=== PATIENT | female | born 1960 | race Caucasian/White ===

== ENCOUNTER → 2016-07-21 | Day surgery (SDC) | payer OTHER ==
[2016-07-19 13:33] VITALS: Ht 168.9 cm; Wt 69.1 kg
[~2016-07-21] VITALS: Ht 168.9 cm; Wt 69.1 kg
[~2016-07-21] MED LIST: AMOX500C3 PO; ATROPINE SULFATE 0.1 MG/ML 5ML SYR IV PRN; CIPROFLOXACIN / D5W 400 MG IV SCH; COEN75CA PO; CRS/10 PO; DEXAMETHASONE SOD INJ 4 MG/ML VIAL ONE; EpHEDrine SULFATE INJ 50 MG/ML AMP IV PRN; FENTANYL CITRATE INJ 50 MCG/1 ML 2 ML VIAL IV PRN; FENTANYL CITRATE INJ 50 MCG/1 ML 2 ML VIAL ONE; LACTATED RINGER'S 1000ML 1,000 ML IV SCH; LEVO100T7 PO; LIDOCAINE HCL 2% 2 ML VIAL (20MG/ML) ONE; METOCLOPRAMIDE HCL INJ 5 MG/ML 2 ML VIAL ONE; MIDAZOLAM HCL 1 MG/ML 2ML VIAL ONE; MULT-506 PO; NURSING VERBAL MED ORDER ONE; ONDANSETRON INJ 2 MG/ML 2 ML VIAL IV PRN; ONDANSETRON INJ 2 MG/ML 2 ML VIAL ONE; PANT40TA PO; PROPOFOL IV EMULSION 10 MG/ML 20 ML VIAL IV ONE; SCOPOLAMINE 1.5 MG TDSY TD ONE
--- NOTE | 2016-07-21 09:12 | DIAGNOSTIC IMAGING REPORT ---
KUB CLINICAL HISTORY: Nephrolithiasis. FINDINGS: 2 AP abdominal radiographs are compared to study dated 07/13/2016 and correlated with abdominal CT dated 12/30/2015. There is a nonobstructed abdominal bowel gas pattern. There are 2 calcifications projecting below the left left transverse process of L3. These are likely within the mesentery when correlated with these prior CT scan. A 9 mm calculus projecting over the lower pole of the left kidney is unchanged. No calcifications are seen projecting over the right kidney. Pelvic phleboliths are again noted. The bony structures appear intact. IMPRESSION: 1. A 9 mm left renal calculus is unchanged. 2. Calcifications projecting below the left transverse process of L3 are likely located within the mesentery when correlated with the prior abdominal CT scan. Electronically signed by: Marcin Hamilton M.D. 07/21/2016 9:10 AM Dictated Date/Time: 07/21/2016 9:08 AM
--- NOTE | 2016-07-21 11:12 | History & Physical Bridge - SC ---
H&P Re-Evaluation Bridge Note: I have examined the patient, reviewed the History & Physical and in the interval since the performance of the History & Physical I have noted the following changes of clinical significance: No changes noted
--- NOTE | 2016-07-21 12:32 | [facility] Post Operative Brief Note ---
Immediate Operative Summary Operative Date Jul 21, 2016. Pre-Operative Diagnosis left renal stone Post-Operative Diagnosis same Procedure(s) Performed Left Extracorporeal Shock Wave Lithotripsy Surgeon dr betancourt Human Performance Consultant Surgeon(s) none Estimated Blood Loss 0 Findings stone appeared to fragment Specimens 0
--- NOTE | 2016-07-21 12:34 | Discharge Instructions-SurgCtr ---
Discharge Instructions Visit Reason for Visit: Left Stones Discharge Discharge Diagnosis / Problem: same Discharge Goals Goal(s): Improve function, Improve disease control Medications Stopped Medications Name(s): HELD HER BABY ASPIRIN FOR EIGHT DAYS Activity Recommendations Activity Limitations: as noted below (no driving on narcotics) Anesthesia . Post Anesthesia Instructions: If you have had General Anesthesia or IV Sedation: * Do not drive today. * Resume driving when surgeon permits. * Do not make important decisions or sign legal documents today. * Call surgeon for: 1. Temperature elevations greater than 101 degrees F. 2. Uncontrollable pain. 3. Excessive bleeding. 4. Persistent nausea and vomiting. 5. Medication intolerance (nausea, vomiting or rash). * For nausea and vomiting use only clear liquids such as: tea, soda, bouillon until nausea subsides, then gradually increase diet as tolerated. * If you have any concerns or questions, call your surgeon's office. If physician is unavailable and it is an emergency, call 911 or go to the nearest emergency room. . Diet Recommendations Home Diet: resume previous diet Procedures Procedures Performed: Left Extracorporeal Shock Wave Lithotripsy Medical Emergencies . Who to Call and When: Medical Emergencies: If at any time you feel your situation is an emergency, please call 911 immediately. . Non-Emergent Contact . . "Provider Documentation" section prepared by Enrique Jean.
--- NOTE | 2016-07-21 12:59 | Anesthesia Progress Nt - [facility] ---
Anesthesia Post Op Note Date & Time Jul 21, 2016 at 12:59 Vital Signs Vital Signs Past 12 Hours Date Time Temp Pulse Resp B/P Pulse Ox O2 Delivery O2 Flow Rate FiO2 07/21/16 12:42 36.7 81 16 151/96 100 Diffusion Mask 6 07/21/16 09:51 37.0 74 18 135/97 96 Room Air Notes Mental Status: alert / awake / arousable, participated in evaluation Pt Amnestic to Procedure: Yes Nausea / Vomiting: adequately controlled Pain: adequately controlled Airway Patency, RR, SpO2: stable & adequate BP & HR: stable & adequate Hydration State: stable & adequate Anesthetic Complications: no major complications apparent
[2016-07-21 13:46] VITALS: TEMP 36.5
[2016-07-21 14:07] VITALS: BP 116/75; PULSE 81; O2SAT 98
--- NOTE | 2016-07-21 14:54 | OPERATIVE REPORT ---
DATE OF OPERATION: 07/21/2016 PREOPERATIVE DIAGNOSIS: Left renal stone. POSTOPERATIVE DIAGNOSIS: Same. SURGEON: Dr. Jean. ANESTHESIA: General. INDICATIONS: The patient is a 56-year-old female with a left lower pole ureteral stone for lithotripsy. DESCRIPTION OF THE PROCEDURE: The patient was taken to the operating room after she had Venodyne stockings placed and antibiotics were given. She was given general anesthesia in the supine position. The stone was visualized in 2 views and she received 2500 shocks, the majority at level 4 as the stone appeared to fragment during the course of the lithotripsy. The patient has tolerated the procedure well and was transferred to the recovery room in stable condition. I attest to the content of the Intraoperative Record and any orders documented therein. Any exceptio ns are noted below.
== END | disposition home or self-care (01) ==
LOC: X.SURG 09:16
PROVIDERS: ATTEND Urology
DX: N20.0 Calculus of kidney (principal); N39.0 Urinary tract infection, site not specified; N63 Unspecified lump in breast; I73.9 Peripheral vascular disease, unspecified; K21.9 Gastro-esophageal reflux disease without esophagitis; E78.5 Hyperlipidemia, unspecified; E03.9 Hypothyroidism, unspecified; Z98.890 Other specified postprocedural states; Z90.49 Acquired absence of other specified parts of digestive tract; Z98.51 Tubal ligation status

== ENCOUNTER → 2017-02-06 | Outpatient (CLI) | payer OTHER ==
[~2017-02-06] MED LIST changes: -ATROPINE SULFATE 0.1 MG/ML 5ML SYR IV PRN; -CIPROFLOXACIN / D5W 400 MG IV SCH; -DEXAMETHASONE SOD INJ 4 MG/ML VIAL ONE; -EpHEDrine SULFATE INJ 50 MG/ML AMP IV PRN; -FENTANYL CITRATE INJ 50 MCG/1 ML 2 ML VIAL IV PRN; -FENTANYL CITRATE INJ 50 MCG/1 ML 2 ML VIAL ONE; -LACTATED RINGER'S 1000ML 1,000 ML IV SCH; -LIDOCAINE HCL 2% 2 ML VIAL (20MG/ML) ONE; -METOCLOPRAMIDE HCL INJ 5 MG/ML 2 ML VIAL ONE; -MIDAZOLAM HCL 1 MG/ML 2ML VIAL ONE; -NURSING VERBAL MED ORDER ONE; -ONDANSETRON INJ 2 MG/ML 2 ML VIAL IV PRN; -ONDANSETRON INJ 2 MG/ML 2 ML VIAL ONE; -PROPOFOL IV EMULSION 10 MG/ML 20 ML VIAL IV ONE; -SCOPOLAMINE 1.5 MG TDSY TD ONE
--- NOTE | 2017-02-06 14:01 | DIAGNOSTIC IMAGING REPORT ---
KUB CLINICAL HISTORY: NEPHROLITHIASIS nephrocalcinosis COMPARISON STUDY: 07/31/2016 FINDINGS: Unchanging left-sided nephrocalcinosis. 3 mm calcification medially lateral to the L3-L4 disc base similar compared to the prior study. Several pelvic calcifications unchanged. IMPRESSION: Left renal calcification unchanged in the prior study. Unchanging calcification medially left lateral L3-L4 The above report was generated using voice recognition software. It may contain grammatical, syntax or spelling errors. Electronically signed by: Zain Justice M.D. 02/06/2017 1:59 PM Dictated Date/Time: 02/06/2017 1:54 PM
== END | disposition home or self-care (01) ==
LOC: C.RAD 13:30
PROVIDERS: ATTEND Nurse Practitioner Family
DX: N20.0 Calculus of kidney (principal)

== ENCOUNTER → 2018-02-07 | Day surgery (SDC) | payer OTHER ==
[2018-01-01 16:50] VITALS: BMI 23.0
[2018-01-21 15:01] VITALS: Ht 167.6 cm; Wt 68.2 kg
--- NOTE | 2018-02-05 08:34 | History and Physical: Surg Cnt ---
History & Physical Date Feb 05, 2018. Chief Complaint chronic tonsillitis History of Present Illness The patient is a 57 year old female with complaints of chronic tonsillitis/ tonsilloliths Additional History Hepatic Disease: No Endocrine Disorder: No Kidney Disease: No Hypertension: No Heart Disease: No Bleeding Tendencies: No Infectious Diseases: No Allergies Coded Allergies: Codeine (Verified Adverse Reaction, Mild, nausea and vomiting, 01/21/18) Home Medications Scheduled Aspirin (Aspirin Ec), 81 MG PO QPM Cholecalciferol (Vitamin D), 1,000 UNITS PO Q2D Coenzyme Q10 (Ubidecarenone) (Co Q-10), 100 CAP PO BID Levothyroxine Sodium (Levothyroxine Sodium), 1 TAB PO QAM Multivitamin (Multivitamin), 1 TAB PO QAM Ranitidine (Zantac), 150 MG PO BID Rosuvastatin Calcium (Crestor), 10 MG PO HS Scheduled PRN Amoxicillin (Amoxil), 1 MG PO TID PRN for DENTAL PROCEDURES Physical Examination Skin: warm/dry, no rash Eyes: normal inspection, EOMI, sclerae normal ENT: normal ENT inspection, pharynx normal Head: normocephalic, atraumatic Neck: supple, no adenopathy, trachea midline Respiratory/Chest: lungs clear, normal breath sounds, no respiratory distress Cardiovascular: regular rate, rhythm, no edema, no murmur Abdomen / GI: normal bowel sounds, non tender Back: normal inspection Extremities: normal inspection, normal range of motion Neurologic/Psych: no motor/sensory deficits, alert, normal reflexes, oriented x 3 Diagnosis chronic tonsillitis/tonsilloliths Plan of Treatment adenotonsillectomy
[~2018-02-07] VITALS: Ht 167.6 cm; Wt 68.2 kg
[~2018-02-07] MED LIST changes: +ACETAMINOPHEN/HYDROCODONE ELIX 15 ML/CUP UDP PO PRN; +ASPI81TA28 PO; +ATROPINE SULFATE 0.1 MG/ML 5ML SYR IV PRN; +BUPIVACAINE/EPINEPHRINE 0.5% MPF 1:200,000 30 ML VIAL ONE; +CEFAZOLIN 1000MG IV PUSH 7.5 ML IV SCH; +CHOL100010 PO; +DEXAMETHASONE SOD INJ 4 MG/ML VIAL ONE; +EpHEDrine SULFATE INJ 50 MG/ML AMP IV PRN; +FENTANYL CITRATE INJ 50 MCG/1 ML 2 ML VIAL IV PRN; +FENTANYL CITRATE INJ 50 MCG/1 ML 2 ML VIAL ONE; +HYDR1SOL10 PO; +LACTATED RINGER'S 1000ML 1,000 ML IV SCH; +LIDOCAINE HCL 2% 2 ML VIAL (20MG/ML) ONE; +MIDAZOLAM HCL 1 MG/ML 2ML VIAL ONE; +ONDA8TAB62 SL; +ONDANSETRON INJ 2 MG/ML 2 ML VIAL IV PRN; +ONDANSETRON INJ 2 MG/ML 2 ML VIAL ONE; -PANT40TA PO; +PROPOFOL IV EMULSION 10 MG/ML 20 ML VIAL ONE; +RANI150T85 PO; +SODIUM CHLORIDE 0.9% 1000ML 1,000 ML IV SCH; +SUCCINYLCHOLINE CHLORIDE 20 MG/ML 10 ML VIAL IV ONE
--- NOTE | 2018-02-07 06:53 | History and Physical: Surg Cnt ---
History & Physical Date Feb 07, 2018. Chief Complaint tonsil stones History of Present Illness The patient is a 57 year old female with complaints of recurrent tonsilloliths Additional History Hepatic Disease: No Endocrine Disorder: No Kidney Disease: No Hypertension: No Heart Disease: No Bleeding Tendencies: No Infectious Diseases: No Allergies Coded Allergies: Codeine (Verified Adverse Reaction, Mild, nausea and vomiting, 01/21/18) Home Medications Scheduled Aspirin (Aspirin Ec), 81 MG PO QPM Cholecalciferol (Vitamin D), 1,000 UNITS PO Q2D Coenzyme Q10 (Ubidecarenone) (Co Q-10), 100 CAP PO BID Levothyroxine Sodium (Levothyroxine Sodium), 1 TAB PO QAM Multivitamin (Multivitamin), 1 TAB PO QAM Ranitidine (Zantac), 150 MG PO BID Rosuvastatin Calcium (Crestor), 10 MG PO HS Scheduled PRN Amoxicillin (Amoxil), 1 MG PO TID PRN for DENTAL PROCEDURES Physical Examination Skin: warm/dry, no rash Eyes: normal inspection, EOMI, sclerae normal ENT: normal ENT inspection, pharynx normal Head: normocephalic, atraumatic Neck: supple, no adenopathy, trachea midline Respiratory/Chest: lungs clear, normal breath sounds, no respiratory distress Cardiovascular: regular rate, rhythm, no edema, no murmur Abdomen / GI: normal bowel sounds, non tender Back: normal inspection Extremities: normal inspection, normal range of motion Neurologic/Psych: no motor/sensory deficits, alert, normal reflexes, oriented x 3 Diagnosis chronic tonsillitis Plan of Treatment adenotonsillectomy
[2018-02-07] MEDS: CEFAZOLIN 1000MG IV PUSH 7.5 ML IV SCH ×2 (07:19→08:15)
--- NOTE | 2018-02-07 08:46 | [facility] Post Operative Brief Note ---
Immediate Operative Summary Operative Date Feb 07, 2018. Pre-Operative Diagnosis Chronic Tonsillitis Post-Operative Diagnosis same Procedure(s) Performed Tonsillectomy Surgeon Dr. Jean Paul Tello Spanish Translator Surgeon(s) 0 Estimated Blood Loss 5cc Findings Consistent with Post-Op Diagnosis Specimens A. Right Tonsil B. Left Tonsil Drains None Anesthesia Type General Complication(s) none Disposition Accompanied Pt To Recover: yes Disposition: Recovery Room / PACU Overlapping Procedure I was present for: the critical portions of procedure. I was immediately available: during the entire case
--- NOTE | 2018-02-07 08:50 | Discharge Instructions-SurgCtr ---
Discharge Instructions Date of Service Feb 07, 2018. Visit Reason for Visit: Chronic Tonsillitis Discharge Discharge Diagnosis / Problem: TULIO Discharge Goals Goal(s): Improve disease control Medications Stopped Medications Name(s): ASA, Q10, and ibuprofen stopped couple of weeks ago. Activity Recommendations Activity Limitations: per Instructions/Follow-up section Anesthesia . Post Anesthesia Instructions: If you have had General Anesthesia or IV Sedation: * Do not drive today. * Resume driving when surgeon permits. * Do not make important decisions or sign legal documents today. * Call surgeon for: 1. Temperature elevations greater than 101 degrees F. 2. Uncontrollable pain. 3. Excessive bleeding. 4. Persistent nausea and vomiting. 5. Medication intolerance (nausea, vomiting or rash). * For nausea and vomiting use only clear liquids such as: tea, soda, bouillon until nausea subsides, then gradually increase diet as tolerated. * If you have any concerns or questions, call your surgeon's office. If physician is unavailable and it is an emergency, call 911 or go to the nearest emergency room. . Instructions / Follow-Up Instructions / Follow-Up ACTIVITY RECOMMENDATIONS: * During the first few days, activities should be limited. * Stay indoors for several days. * After 48 hours, activity can gradually be increased to normal activity. RETURN TO SCHOOL/WORK: * Return to school or work in one week. * No physical education for two weeks. OVER THE COUNTER MEDICATIONS: * You may use Tylenol * Avoid aspirin or aspirin containing products, e.g. as they may increase bleeding. SPECIAL CARE INSTRUCTIONS: * Avoid coughing or clearing the throat. * Do not use a straw. * A sore throat is expected frequently accompanied by pain radiating to the ears. This is normal. * Expect bad breath until "scabs" are healed. * Notify the doctor if bleeding occurs, vomiting, temperature greater than 101 degrees Fahrenheit. Call or cell phone: . * If bleeding occurs, it is usually in the first 24 hours or after the 5th day. If unable to reach the doctor, go to the nearest Emergency Department. Special Diet: * Fluids are very important and should be encouraged to maintain adequate hydration. * To maintain nutrition, eat soft foods and after 48 hours the consistency of foods can be increased. Examples are jello, soup, pasta, ice cream and mashed foods. FOLLOW UP VISIT: Follow-up visit with Dr. Tello in 2 weeks. Please call to schedule if not already scheduled. Diet Recommendations Home Diet: special diet Diet Texture: Mechanical Soft (ground) Procedures Procedures Performed: Tonsillectomy Pending Studies Studies pending at discharge: no Medical Emergencies . Who to Call and When: Medical Emergencies: If at any time you feel your situation is an emergency, please call 911 immediately. . Non-Emergent Contact Non-Emergency issues call your: Primary Care Provider . . "Provider Documentation" section prepared by Mercy Tello. . [place] Drug Monitoring Program Search Results: no issues identified
--- NOTE | 2018-02-07 09:23 | Anesthesia Progress Nt - [facility] ---
Anesthesia Post Op Note Date & Time Feb 07, 2018 at 09:23 Vital Signs Pain Intensity: 0 Vital Signs Past 12 Hours Date Time Temp Pulse Resp B/P (MAP) Pulse Ox O2 Delivery O2 Flow Rate FiO2 02/07/18 09:22 98 19 98 02/07/18 09:22 99 19 02/07/18 09:21 164/95 02/07/18 09:19 165/86 02/07/18 09:17 98 17 114/98 96 02/07/18 09:17 97 17 02/07/18 09:14 146/99 02/07/18 09:12 101 16 02/07/18 09:12 100 16 98 02/07/18 09:11 174/92 02/07/18 09:10 100 21 02/07/18 09:10 99 21 99 02/07/18 09:10 36.6 98 Room Air 02/07/18 09:06 166/92 02/07/18 09:05 100 20 98 02/07/18 09:05 100 20 02/07/18 09:04 101 19 98 02/07/18 09:04 100 19 02/07/18 09:01 174/101 02/07/18 08:59 102 16 02/07/18 08:59 102 16 100 02/07/18 08:56 157/85 02/07/18 08:54 112 17 100 02/07/18 08:54 113 17 02/07/18 08:51 162/80 02/07/18 08:49 36.4 103 16 162/90 100 Humidified Oxygen 7 Mask 02/07/18 07:01 36.7 74 16 169/81 (110) 100 Room Air Notes Mental Status: alert / awake / arousable, participated in evaluation Pt Amnestic to Procedure: Yes Nausea / Vomiting: adequately controlled Pain: adequately controlled Airway Patency, RR, SpO2: stable & adequate BP & HR: stable & adequate Hydration State: stable & adequate Anesthetic Complications: no major complications apparent
[2018-02-07 09:34] VITALS: TEMP 36.7
[2018-02-07 10:58] VITALS: BP 156/81; PULSE 90; O2SAT 97
--- NOTE | 2018-02-07 13:20 | OPERATIVE REPORT ---
DATE OF OPERATION: 02/07/2018 PREOPERATIVE DIAGNOSIS: Chronic tonsillitis with formation of tonsilloliths. POSTOPERATIVE DIAGNOSIS: Chronic tonsillitis with formation of tonsilloliths. PROCEDURE: Tonsillectomy. SURGEON: Dr. Tello. ANESTHESIA: General endotracheal. COMPLICATIONS: None. BLOOD LOSS: 5 mL. HISTORY OF PRESENT ILLNESS: A 57-year-old lady with recurrent tonsillitis with formation of tonsilloliths. PROCEDURE: The patient was brought to the operating room and placed in supine position. General endotracheal anesthesia was induced, draped in the usual manner. Mouth gag was placed. Peritonsillar area was injected with .5% Sensorcaine, 1:200:000 strength Epinephrine. Soft palate retracted using a red Corea catheter. Tonsillectomy performed using the coblation device coblating out the tonsil from anterior to the posterior pillar and from the superior pole to the inferior pole. Both tonsils were removed in a similar manner. Hemostasis was controlled with the coblation device. I attest to the content of the Intraoperative Record and any orders documented therein. Any exception s are noted below.
== END | disposition home or self-care (01) ==
LOC: X.SURG 06:54
PROVIDERS: ATTEND Otolaryngology
DX: J35.01 Chronic tonsillitis (principal); J35.8 Other chronic diseases of tonsils and adenoids; K21.9 Gastro-esophageal reflux disease without esophagitis; I35.0 Nonrheumatic aortic (valve) stenosis; Z88.5 Allergy status to narcotic agent; Z79.82 Long term (current) use of aspirin; Z79.899 Other long term (current) drug therapy